=== PATIENT | male | born 1970 | race Caucasian/White ===

== ENCOUNTER 2021-10-06 07:09 | Day surgery (SDC) | payer BC ==
[2021-10-03 10:59] LABS: Absolute Lymphocytes (CBC) 2.1 K/uL (0.7-4.9); Hematocrit 49.1 % (39.6-49.0); Lymphocytes % 31.1 % (15.3-44.8); MPV 7.7 fL (7.6-11.3); RBC Red Blood Cell Count 5.87 M/uL (4.33-5.43)
[2021-10-06] MEDS ORDERED: Ringers Lactate 1,000 ML IV ONE (07:20)
[2021-10-06] MEDS ORDERED: CEFAZOLIN 2 GM IN 0.9% NACL 2 GM/100 ML BAG ONE (07:20)
[2021-10-06] MEDS ORDERED: propofoL 200 MG/20 ML VIAL IV ONE (07:33)
[2021-10-06] MEDS ORDERED: MIDAZOLAM HCL 2 MG/2 ML INJ ONE (07:34)
[2021-10-06] MEDS ORDERED: GLYCOPYRROLATE 0.2 MG/ML SYR ONE (07:34)
[2021-10-06] MEDS ORDERED: LIDOCAINE 2% MPF 5 ML VIAL ONE (07:34)
[2021-10-06] MEDS ORDERED: ROCURONIUM 50 MG/5 ML VIAL IV ONE (07:35)
[2021-10-06] MEDS ORDERED: NEOSTIGMINE 1 MG/ML -10 ML VIAL ONE (07:38)
[2021-10-06] MEDS ORDERED: ONDANSETRON 4 MG/2 ML VIAL ONE (07:38)
[2021-10-06] MEDS ORDERED: FENTANYL CITR 100 MCG/2 ML ONE (07:39)
[2021-10-06] MEDS: BUPIVACAINE 0.25% PF 10 ML VIAL ONE ×2 (08:37→08:46)
[2021-10-06] MEDS ORDERED: dexAMETHasone 10 MG/ML VIAL ONE (08:44)
[2021-10-06] MEDS ORDERED: EPHEDRINE SULF 50 MG/ML VIAL ONE (08:57)
--- NOTE | 2021-10-06 09:31 | P.OP ---
Preoperative diagnosis: Incarcerated Ventral Umbilical Hernia Postoperative diagnosis: Incarcerated Ventral Umbilical Hernia Primary procedure: Laparoscopic Ventral Hernia Repair with Mesh Anesthesia: GETA + Local Estimated blood loss: <5cc Specimen: hernia contents Findings: incarcerated umbilical hernia with skin changes Complications: None Implants: 11.4cm bard ventralite round mesh, sorbafix x 2 Transferred to: Recovery Room Condition: Good
[2021-10-06] MEDS: HYDROMORPHONE HCL 1 MG/ML INJ ONE ×7 (09:40→10:17)
[2021-10-06 10:57] VITALS: BP 103/50; TEMP 97.7; O2SAT 96
[2021-10-06] MEDS ORDERED: HYDROCODONE/APAP 5/325 MG TAB ONE (11:21)
--- NOTE | 2021-10-06 20:45 | OP ---
Date of Procedure: 10/06/2021 Surgeon: Unruly Bartlett MD, Preoperative Diagnosis: Incarcerated ventral umbilical hernia. Postoperative Diagnosis: Incarcerated ventral umbilical hernia. Procedure Performed: Laparoscopic ventral umbilical hernia repair with mesh. Anesthesia: General endotracheal plus local with 0.25% Marcaine. Estimated Blood Loss: Less than 5 cc. Specimens: Hernia contents. Findings: Incarcerated umbilical hernia with skin changes. Complications: None. Implants: Approximately 11.4 cm Bard Ventralight round mesh and the SorbaFix absorbable fixation tac ker. Disposition: Patient was transferred to recovery room in good condition. Procedure In Detail: After informed consent was obtained, patient was brought to the operating room and prepped and draped in the usual sterile fashion. After adequate anesthesia was achieved, an area of the left upper quadrant was anesthetized with 0.25% Marcaine and sharply incised. A 5 mm 0-degre e optical trocar was introduced in the abdomen without evidence of any complication. Insufflation wa s obtained to 15 mmHg at this time. There was no injury to vital structures upon entry into the abdo men. Additional trocar was chosen at left lower quadrant. This area was similarly anesthetized and sharply incised. A 12 mm trocar was placed under direct visualization without any evidence of compli cation. I then used a ratcheted graspers to grasp patient's incarcerated umbilical hernia and reduce d it to the normal peritoneal position. Omentum was entrapped within as well as preperitoneal fat. After using the LigaSure device to clear back the preperitoneal fat to allow for appropriate landing zone, additional hernia was appreciated. The infraumbilical position was approximately half a centim eter in size inferior to the umbilical hernia, which was found to be approximately 2 cm defect. At t his point, I used the Endo stitch with a V-Loc suture and ran a baseball stitch to close the hernia d efect while imbricating the hernia sac in a running fashion as described with good apposition of the tissues. I then sized an 11.[address] mesh with Echo Positioning System positioned at the central portion with a stab incision and deployed the balloon at this point after being complete ly positioned. At this point, I used the SorbaFix absorbable fixation Tacker to secure the mesh to t he anterior abdominal wall with a single crown, removed the mesh deployment system and then secured a second crown of approximately 45 to 50 tacks to the anterior abdominal wall with good apposition of tissues. At this point, the mesh was in good apposition. The hernia was completely repaired. No bl eeding or hemostatic maneuvers were required. The patient was positioned slightly away. The 12 mm t rocar site was closed using a [place]-Pur[place] suture passer with 0 Vicryl in an interrupted fashion w ith good approximation of tissues. The abdomen was completely desufflated under direct visualization without any complication. Remaining skin incisions were then copiously irrigated after the abdomen was completely desufflated. All skin incisions were then irrigated, closed with a 4-0 Monocryl in a running fashion. Dermabond was placed over top. The patient tolerated the procedure well without an y evidence of complication and transferred to PACU in good condition. All counts were correct at the end of the case. ELENA/COY Voice ID: [id number] Report ID: [id number]
== END 2021-10-06 11:44 | disposition home or self-care (01) ==
LOC: OR 07:09
PROVIDERS: ATTEND Surgery
PROC: 0WUF4JZ Supplement Abdominal Wall with Synthetic Substitute, Percutaneous Endoscopic Approach (ICD-10-PCS; principal; 2021-10-06 10:30)
DX: K42.0 Umbilical hernia with obstruction, without gangrene (principal); Z20.822 Contact with and (suspected) exposure to COVID-19
CPT/HCPCS: 85025; 80048; 36415; 88302; 49653; U0002; J2704; J2710; J2250; J3010; J1100; J1170 ×3; J0690; J7120; J2405; C1781

== ENCOUNTER 2021-11-13 10:38 | Emergency (ER) | payer BC ==
[2021-11-13 12:16] LABS: Absolute Lymphocytes (CBC) 1.7 K/uL (0.7-4.9); Hematocrit 48.5 % (39.6-49.0); Lymphocytes % 24.4 % (15.3-44.8); MCV 81.7 fL (80-100); MPV 7.8 fL (7.6-11.3); RBC Red Blood Cell Count 5.94 M/uL (4.33-5.43)
[2021-11-13 12:30] LABS: Albumin 3.7 g/dL (3.4-5.0); Bilirubin Total 0.5 mg/dL (0.2-1.0); Potassium 3.9 mmol/L (3.5-5.1); Protein, Total 7.3 g/dL (6.4-8.2)
--- NOTE | 2021-11-13 13:24 | RAD REPORT ---
EXAM DESCRIPTION: CT - Abdomen Pelvis W Contrast - 11/13/2021 12:55 pm CLINICAL HISTORY: abdominal pain, vomiting COMPARISON: No comparisons TECHNIQUE: Biphasic, helical CT imaging of the abdomen and pelvis was performed following 100 ml non -ionic IV contrast. No oral contrast administered. All CT scans are performed using dose optimization technique as appropriate and may include automated exposure control or mA/KV adjustment according to patient size. FINDINGS: No suspicious findings in the lung bases. The liver, spleen, and pancreas show no suspicious findings. Gallbladder and biliary tree are also wi thout suspicious finding. Symmetric renal function is seen with no hydronephrosis or suspicious renal mass. An exophytic 2.5 cm mass projects from the lateral aspect of the left kidney. No pyelonephritis or acute parenchymal pro cess. No bladder abnormalities. No adrenal abnormalities. Fluid is present in nondilated stomach. No gastric wall thickening or mass. Duodenum is unremarkable. There are multiple loops of jejunum and proximal ileum that are prominent and fluid-filled. This is an enteritis pattern without focal mass or obstruction. Fluid is present in the right-side of the col on to the mid transverse colon level. No colon wall thickening or mass. Left-side of the colon is dec ompressed. No free air, free fluid or inflammatory stranding. No mass or bulky lymphadenopathy. Patient has mo derate-sized bilateral fat filled inguinal hernias. There is a very small 15 mm umbilical hernia. No suspicious bony findings. Significant degenerative disc disease at L4-5 with disc bulge and endpl ate spurring. IMPRESSION: Moderately prominent small bowel enteritis pattern is seen with no obstruction, free air or emergent finding. Moderate-sized bilateral fat filled inguinal hernias are present. There is a small fat only umbilical hernia 15 mm in size.
[2021-11-13 14:24] LABS: Urine Blood Negative (Negative); Urine Glucose Negative (Negative); Urine Protein Negative (Negative)
[2021-11-13] MEDS ORDERED: Ringers Lactate 1,000 ML IV ONE (15:07)
--- NOTE | 2021-11-13 15:59 | ER ---
Nurse's Notes [facility] Name: Pa Hernandez Age: 50 yrs Sex: Male : 1970 Arrival Date: 11/13/2021 Time: 10:41 Bed 20 Private MD: Julio C Pop Diagnosis: Abdominal pain, unspecified;Vomiting;Diarrhea, unspecified Presentation: 11/13 10:55 Chief complaint: Patient states: He has had NVD along with possible fever for approx ap3 one day now. Patient also states having left sided abdominal pain that began yesterday as well. Patient reports having a hernia repair surgery on 10/06/21 and didn't know if his symptoms were related to that surgery or not. Coronavirus screen: Client presents with at least one sign or symptom that may indicate coronavirus-19. Ebola Screen: No symptoms or risks identified at this time. Initial Sepsis Screen: Does the patient meet any 2 criteria? No. Patient's initial sepsis screen is negative. Does the patient have a suspected source of infection? No. Patient's initial sepsis screen is negative. Risk Assessment: Do you want to hurt yourself or someone else? Patient reports no desire to harm self or others. Onset of symptoms was November 12, 2021. 10:55 Method Of Arrival: Ambulatory ap3 10:59 Acuity: ESTELA 3 ap3 Triage Assessment: 10:58 General: Appears in no apparent distress. Behavior is calm, cooperative, appropriate ap3 for age. Pain: Complains of pain in abdomen. Neuro: Level of Consciousness is awake, alert, obeys commands, Oriented to person, place, time, situation, Moves all extremities. Gait is steady. Cardiovascular: Patient's skin is warm and dry. Respiratory: Airway is patent Respiratory effort is even, unlabored. GI: Reports cramping, diarrhea, intolerance of fluids, intolerance of food, nausea, vomiting. Historical: - Allergies: 10:57 No Known Allergies; ap3 - Home Meds: 10:57 Flomax Oral [Active]; Nexium Oral [Active]; ap3 - PMHx: 10:57 enlarged prostate; ap3 - Immunization history:: Client reports receiving the 2nd dose of the Covid vaccine. - Social history:: Smoking status: Patient denies any tobacco usage or history of. Screenin:59 Abuse screen: Denies threats or abuse. Nutritional screening: No deficits noted. ap3 Tuberculosis screening: No symptoms or risk factors identified. 15:08 Fall Risk None identified. ph Assessment: 15:07 General: Appears in no apparent distress. comfortable, well groomed, Behavior is calm, ph cooperative, appropriate for age. Pain: Complains of pain in abdomen. Neuro: Level of Consciousness is awake, alert, obeys commands, Oriented to person, place, time, situation. Cardiovascular: Capillary refill < 3 seconds in bilateral fingers Patient's skin is warm and dry. Respiratory: Airway is patent Respiratory effort is even, unlabored. GI: Abdomen is non-distended, Bowel sounds present X 4 quads. Abd is soft and non tender X 4 quads. Reports lower abdominal pain, diarrhea, nausea, vomiting. Derm: Skin is intact, is healthy with good turgor, Skin is pink, warm \T\ dry. Vital Signs: 10:55 BP 126 / 89; Pulse 92; Resp 17; Temp 98.1; Pulse Ox 96% ; Weight 93.44 kg; Height 6 ft. ap3 0 in. (182.88 cm); 15:07 BP 126 / 78; Pulse 86; Resp 18; Temp 98.0; Pulse Ox 99% on R/A; ph 10:55 Body Mass Index 27.94 (93.44 kg, 182.88 cm) ap3 ED Course: 10:41 Patient arrived in ED. mr 10:41 Julio C Pop MD is Private Physician. mr 10:46 Jono Bills PA is [facility]. m 10:46 Carmelo French MD is Attending Physician. [facility] 10:59 Triage completed. ap3 10:59 Arm band placed on right wrist. ap3 12:13 Inserted saline lock: 20 gauge in right antecubital area, using aseptic technique. zm Blood collected. 12:14 CBC with Diff Sent. zm 12:14 CMP Sent. zm 12:14 Lipase Sent. zm 12:56 CT Abd/Pelvis - IV Contrast Only In Process Unspecified. EDMS 14:41 Amy Pham, RN is Primary Nurse. ph 15:08 Patient has correct armband on for positive identification. Bed in low position. Call ph light in reach. Side rails up X 1. Pulse ox on. NIBP on. 15:08 No provider procedures requiring assistance completed. ph 15:58 Unruly Bartlett MD is Referral Physician. [facility] 16:36 IV discontinued, intact, bleeding controlled, No redness/swelling at site. Pressure ph dressing applied. Administered Medications: 15:07 Drug: Lactated Ringers Solution 1000 ml Route: IV; Rate: 1000 bolus; Site: right ph antecubital; 16:35 Follow up: Response: No adverse reaction; IV Status: Completed infusion; IV Intake: ph 1000ml Medication: 15:08 VIS not applicable for this client. ph Intake: 16:35 IV: 1000ml; Total: 1000ml. ph Outcome: 15:59 Discharge ordered by . [facility] 16:35 Discharged to home ambulatory, with significant other. ph 16:35 Condition: good 16:35 Discharge instructions given to patient, Instructed on discharge instructions, follow up and referral plans. Demonstrated understanding of instructions, follow-up care. 16:36 Patient left the ED. ph Signatures: Dispatcher [employer] EDMS Jono Bills PA PA [facility] Samantha Dc Amy Pham RN RN Poonam Walls RN RN ap3 Jimena العراقي Corrections: (The following items were deleted from the chart) 10:58 10:57 Allergies: Aspirin; ap3 ap3
--- NOTE | 2021-11-13 15:59 | EDPHYS ---
Physician Documentation [facility] Name: Pa Hernandez Age: 50 yrs Sex: Male : 1970 Arrival Date: 11/13/2021 Time: 10:41 Bed 20 Private MD: Julio C Pop ED Physician Carmelo French HPI: 11/13 11:21 This 50 yrs old Male presents to ER via Ambulatory with complaints of Abdominal Pain, jmm Vomiting/Diarrhea. 11:21 The patient presents with abdominal pain. Onset: The symptoms/episode began/occurred jmm acutely, 1 day(s) ago. The symptoms do not radiate. Associated signs and symptoms: Pertinent positives: nausea and vomiting, diarrhea. The symptoms are described as achy, crampy. Modifying factors: The symptoms are alleviated by nothing, the symptoms are aggravated by nothing. It is unknown whether or not the patient has had similar symptoms in the past. Historical: - Allergies: 10:57 No Known Allergies; ap3 - Home Meds: 10:57 Flomax Oral [Active]; Nexium Oral [Active]; ap3 - PMHx: 10:57 enlarged prostate; ap3 - Immunization history:: Client reports receiving the 2nd dose of the Covid vaccine. - Social history:: Smoking status: Patient denies any tobacco usage or history of. ROS: 11:21 Cardiovascular: Negative for chest pain, palpitations, and edema, Respiratory: Negative jmm for shortness of breath, cough, wheezing, and pleuritic chest pain. 11:21 Constitutional: Positive for body aches. 11:21 Abdomen/GI: Positive for abdominal pain, nausea and vomiting, diarrhea. 11:21 All other systems are negative. Exam: 11:21 Head/Face: atraumatic. Eyes: EOMI, no conjunctival erythema appreciated ENT: Moist jmm Mucus Membranes Neck: Trachea midline, Supple Chest/axilla: Normal chest wall appearance and motion. Cardiovascular: Regular rate and rhythm. No edema appreciated Respiratory: Normal respirations, no respiratory distress appreciated 11:21 Back: Normal ROM Skin: General appearance color normal MS/ Extremity: Moves all extremities, no obvious deformities appreciated, no edema noted to the lower extremities Neuro: Awake and alert Psych: Behavior is normal, Mood is normal, Patient is cooperative and pleasant 11:21 Constitutional: The patient appears in no acute distress, alert, awake. 11:21 Abdomen/GI: Inspection: abdomen appears normal, Bowel sounds: normal, Palpation: soft, mild abdominal tenderness, in all quadrants. Vital Signs: 10:55 BP 126 / 89; Pulse 92; Resp 17; Temp 98.1; Pulse Ox 96% ; Weight 93.44 kg; Height 6 ft. ap3 0 in. (182.88 cm); 15:07 BP 126 / 78; Pulse 86; Resp 18; Temp 98.0; Pulse Ox 99% on R/A; ph 10:55 Body Mass Index 27.94 (93.44 kg, 182.88 cm) ap3 MDM: 11:21 Patient medically screened. [facility] 15:57 Data reviewed: vital signs, nurses notes. Counseling: I had a detailed discussion with [facility] the patient and/or guardian regarding: the historical points, exam findings, and any diagnostic results supporting the discharge/admit diagnosis, lab results, radiology results, the need for outpatient follow up, to return to the emergency department if symptoms worsen or persist or if there are any questions or concerns that arise at home. 11/13 11:21 Order name: CBC with Diff; Complete Time: 12:20 [facility] 11/13 11:21 Order name: CMP; Complete Time: 12:32 [facility] 11/13 11:21 Order name: Lipase; Complete Time: 12:32 [facility] 11/13 11:22 Order name: CT Abd/Pelvis - IV Contrast Only; Complete Time: 13:31 [facility] 11/13 14:25 Order name: Urine Dipstick-Ancillary; Complete Time: 14:26 [facility] 11/13 11:21 Order name: IV Saline Lock; Complete Time: 12:14 [facility] 11/13 11:21 Order name: Labs collected and sent; Complete Time: 12:14 [facility] 11/13 11:21 Order name: Urine Dipstick-Ancillary (obtain specimen); Complete Time: 14:26 [facility] Administered Medications: 15:07 Drug: Lactated Ringers Solution 1000 ml Route: IV; Rate: 1000 bolus; Site: right ph antecubital; 16:35 Follow up: Response: No adverse reaction; IV Status: Completed infusion; IV Intake: ph 1000ml Disposition: 18:22 Co-signature as Attending Physician, Carmelo French MD. rn Disposition Summary: 11/13/21 15:59 Discharge Ordered Location: Home jmm Condition: Stable jmm Diagnosis - Abdominal pain, unspecified jmm - Vomiting jmm - Diarrhea, unspecified jmm Followup: jmm - With: Unruly Bartlett MD - When: 2 - 3 days - Reason: Recheck today's complaints, Continuance of care, Re-evaluation by your physician Forms: - Medication Reconciliation Form jmm - Thank You Letter jmm - Antibiotic Education jmm - Prescription Opioid Use jmm Signatures: Dispatcher [employer] EDMS Jono Bills PA PA jmm Carmelo French MD MD rn Hall, Patricia, RN RN Poonam Walls RN RN ap3 Corrections: (The following items were deleted from the chart) 10:58 10:57 Allergies: Aspirin; ap3 ap3
[2021-11-13 16:50] VITALS: BP 126/78; TEMP 98; O2SAT 99
== END 2021-11-13 16:36 | disposition home or self-care (01) ==
LOC: ER 10:38
DX: R10.9 Unspecified abdominal pain (principal); R11.2 Nausea with vomiting, unspecified; R19.7 Diarrhea, unspecified
CPT/HCPCS: 85025; 36415; 81003; 83690; 80053; 74177; 96360; 99284; Q9967; J7120

== ENCOUNTER 2021-12-07 07:01 | Day surgery (SDC) | payer BC ==
[2021-12-05 12:29] LABS: SARS-CoV-2 Antigen Rapid Res Negative (Negative)
[2021-12-07] MEDS ORDERED: Ringers Lactate 1,000 ML IV ONE (07:23)
[2021-12-07] MEDS ORDERED: CEFAZOLIN 2 GM IN 0.9% NACL 2 GM/100 ML BAG ONE (07:24)
[2021-12-07] MEDS ORDERED: BUPIVACAINE 0.25% PF 10 ML VIAL ONE (08:17)
[2021-12-07] MEDS ORDERED: propofoL 200 MG/20 ML VIAL IV ONE (08:22)
[2021-12-07] MEDS ORDERED: MIDAZOLAM HCL 2 MG/2 ML INJ ONE (08:23)
[2021-12-07] MEDS ORDERED: ONDANSETRON 4 MG/2 ML VIAL ONE ×2 (08:23→09:18)
[2021-12-07] MEDS ORDERED: FENTANYL CITR 100 MCG/2 ML ONE (08:23)
[2021-12-07] MEDS ORDERED: LIDOCAINE 2% MPF 5 ML VIAL ONE (08:23)
[2021-12-07] MEDS ORDERED: ROCURONIUM 50 MG/5 ML VIAL IV ONE ×2 (08:23→10:06)
[2021-12-07] MEDS ORDERED: dexAMETHasone 4 MG/ML VIAL ONE (09:18)
[2021-12-07] MEDS ORDERED: EPHEDRINE SULF 50 MG/ML VIAL ONE (09:33)
--- NOTE | 2021-12-07 10:25 | P.OP ---
Icing Coater: Sydnee Salas Preoperative diagnosis: Bilateral Inguinal Hernias Postoperative diagnosis: Bilateral Inguinal Hernias Primary procedure: Open Bilateral Inguinal Hernia Repair with mesh Anesthesia: GETA + Local Estimated blood loss: <5cc Specimen: cord lipoma from RIGHT Findings: incarcerated bilat, ing hernias, ext oblique thin, adhesions Complications: None Transferred to: Recovery Room Condition: Good
[2021-12-07] MEDS ORDERED: NEOSTIGMINE 1 MG/ML -10 ML VIAL ONE (10:37)
[2021-12-07] MEDS ORDERED: GLYCOPYRROLATE 0.2 MG/ML SYR ONE (10:37)
[2021-12-07] MEDS: HYDROMORPHONE HCL 1 MG/ML INJ ONE ×6 (10:49→11:16)
[2021-12-07] MEDS: MIDAZOLAM HCL 2 MG/2 ML INJ ONE ×2 (11:01→11:06)
[2021-12-07 11:18] VITALS: TEMP 97.3
[2021-12-07] MEDS ORDERED: TAMSULOSIN 0.4 MG SR CAP ONE ×2 (11:36→11:39)
[2021-12-07] MEDS ORDERED: HYDROCODONE/APAP 10/325 TAB ONE (12:08)
[2021-12-07 13:30] VITALS: BP 92/76; O2SAT 96
--- NOTE | 2021-12-07 22:45 | OP ---
Date of Procedure: 12/07/2021 Surgeon: Unruly Bartlett MD, Preoperative Diagnosis: Bilateral inguinal hernias. Postoperative Diagnosis: Bilateral inguinal hernias. Procedure Performed: Open bilateral inguinal hernia repair with mesh. Anesthesia: General endotracheal plus local with 0.25% Marcaine with epinephrine. Estimated Blood Loss: Less than 5 mL. Specimens: Cord lipoma from the right. Findings: 1.Incarcerated bilateral indirect inguinal hernias. 2.Bilateral cord lipomas. 3.External oblique aponeurosis was thin. 4.Significant scar tissue evident in bilateral [place] fat and Yaima fascia planes, extending up to the external oblique aponeurosis. Complications: None. The patient was transferred to recovery room in good condition. Procedure In Detail: After informed consent was obtained, the patient was brought to the operating r oom, prepped and draped in the usual sterile fashion. After adequate anesthesia was achieved, I init iated palpation of the pubic tubercle and the anatomic landmarks in the left inguinal area. I then m arked the area on bilateral sides at this point, but I initiated with the left inguinal incision firs t after appropriately anesthetizing the skin. I used the 15 blade to dissect down through subcutaneo us tissues. I then dissected down through [place] fat and Yaima fascia, which were found to be quite scarred interestingly, as the patient had no previous surgery in this area. There was a significant amount of adhesions extending up to the external oblique aponeurosis. The external oblique aponeuro sis was identified, sharply incised with a 15 blade and then opened in its entirety using [place] scisso rs. It was found to be quite thin with the spermatic cord structures evident through the structure. The ilioinguinal and iliohypogastric nerves were protected throughout the procedure. I then circumf erentially dissected the spermatic cord and structures, and placed a Gera drain under the spermati c cord and structures, and used this to help dissect a cord lipoma off the spermatic cord and structu res, which was able to be dissected and re-placed back to the preperitoneal space. I dissected the h ernia sac circumferentially around and imbricated it into the preperitoneal space. At this point, we found a medium hernia plug to be at appropriate size and placed it into the preperitoneal space to r epair the indirect inguinal hernia. At this point, I then secured the plug using 2-0 PDS sutures cir cumferentially around the defect. I then irrigated the area copiously and sized a hernia patch appro priately. I then placed the patch on the pubic tubercle and secured it to the pubic tubercle using t he same said 2-0 PDS suture. After trimming the mesh appropriately, reconstituting and forming the d eep inguinal ring, I then secured it to the medial and lateral shelving edges of the internal oblique aponeurosis as well as the undersurface of the inguinal ligament. At this point, the area was copio usly irrigated once again. The deep inguinal ring was reconstituted and reformed, and I trimmed a sl ightly bit more of the mesh at this point to make an appropriate closure. I then closed the external oblique aponeurosis over the top after irrigating the area using a 3-0 Vicryl suture in a running fa shion. I then closed [place] fat and Yaima fascia using 3-0 Vicryl suture in a running fashion. Zuri p dermal plane was closed also with 3-0 Vicryl suture and the skin was closed with a 4-0 Monocryl in a running fashion. Dermabond was placed over the top. I then initiated with the right inguinal inci basilio after appropriately anesthetizing the skin. I used the 15 blade to dissect down through subcuta neous tissues. I then dissected down through [place] fat and Yaima fascia, which were found to be qu ite scarred interestingly, as the patient had no previous surgery in this area. There was a signific ant amount of adhesions extending up to the external oblique aponeurosis. The external oblique apone urosis was identified, sharply incised with a 15 blade and then opened in its entirety using [place] sci ssors. It was found to be quite thin with the spermatic cord structures evident through the structur e. The ilioinguinal and iliohypogastric nerves were protected throughout the procedure. I then circ umferentially dissected the spermatic cord and structures, and placed a [place] drain under the sperm atic cord and structures, and used this to help dissect a cord lipoma off the spermatic cord and stru ctures, which was able to be dissected and re-placed back to the preperitoneal space. I dissected th e hernia sac circumferentially around and imbricated it into the preperitoneal space. At this point, we found a small hernia plug to be at appropriate size and placed it into the preperitoneal space to repair the indirect inguinal hernia. At this point, I then secured the plug using 2-0 PDS sutures c ircumferentially around the defect. I then irrigated the area copiously and sized a hernia patch sam ropriately. I then placed the patch on the pubic tubercle and secured it to the pubic tubercle using the same said 2-0 PDS suture. After trimming the mesh appropriately, reconstituting and forming the deep inguinal ring, I then secured it to the medial and lateral shelving edges of the internal obliq ue aponeurosis as well as the undersurface of the inguinal ligament. At this point, the area was blueprinting and photocopy supervisor iously irrigated once again. The deep inguinal ring was reconstituted and reformed, and I trimmed a slightly bit more of the mesh at this point to make an appropriate closure. I then closed the registered nurses al oblique aponeurosis over the top after irrigating the area using a 3-0 Vicryl suture in a running fashion. I then closed [place] fat and Yaima fascia using 3-0 Vicryl suture in a running fashion. D eep dermal plane was closed also with 3-0 Vicryl suture and the skin was closed with a 4-0 Monocryl i n a running fashion. Dermabond was placed over the top. The patient tolerated procedure well withou t evidence of complication, transferred to PACU in good condition. All counts were correct at the en d of the case. ELENA/COY Voice ID: [id number] Report ID: [id number]
== END 2021-12-07 13:15 | disposition home or self-care (01) ==
LOC: OR 07:01
PROVIDERS: ATTEND Surgery
PROC: 0YUA0JZ Supplement Bilateral Inguinal Region with Synthetic Substitute, Open Approach (ICD-10-PCS; principal; 2021-12-07 08:30)
DX: K40.20 Bilateral inguinal hernia, without obstruction or gangrene, not specified as recurrent (principal); Z20.822 Contact with and (suspected) exposure to COVID-19
CPT/HCPCS: 36415; 87811; 88302; J0690; J1100; J1170; J2250; J2405; J2704; J2710; J3010; J7120

== ENCOUNTER 2024-03-27 10:08 | Day surgery (SDC) | payer BC ==
[2024-03-26 15:59] LABS: Absolute Eosinophils 0.1 K/uL (0-0.5); Absolute Lymphocytes (CBC) 1.7 K/uL (0.7-4.9); Absolute Monocytes 0.5 K/uL (0.1-1.3); Absolute Neutrophil 4.1 K/uL (1.8-8.0); Basophils % 0.4 % (0-1.3); Eosinophils % 2.2 % (0-4.4); Hemoglobin 16.1 g/dL (13.6-17.9); Lymphocytes % 25.9 % (15.3-44.8); MCH 28.3 pg (27.0-35.0); MCHC 32.9 g/dL (32.0-36.0); MPV 7.8 fL (7.6-11.3); Monocytes % 8.5 % (3.3-12.3); Platelets 220 thou/uL (152-406); Red Cell Distribution Width 14.1 % (12.1-15.2)
[2024-03-26 16:14] LABS: Anion Gap 4.6 mEq/L (5.0-15.0); Potassium 3.6 mEq/L (3.5-5.1)
[2024-03-27] MEDS: Ringers Lactate 1,000 ML IV ONE (10:45)
[2024-03-27] MEDS ORDERED: MIDAZOLAM HCL 2 MG/2 ML INJ ONE (11:14)
[2024-03-27] MEDS ORDERED: KETOROLAC 30 MG/ML INJ ONE (11:14)
[2024-03-27] MEDS ORDERED: ONDANSETRON 4 MG/2 ML VIAL ONE (11:14)
[2024-03-27] MEDS ORDERED: dexAMETHasone 10 MG/ML VIAL ONE (11:14)
[2024-03-27] MEDS ORDERED: FENTANYL CITR 100 MCG/2 ML ONE (11:14)
[2024-03-27] MEDS ORDERED: LIDOCAINE 2% MPF 5 ML VIAL ONE (11:14)
[2024-03-27] MEDS ORDERED: propofoL 200 MG/20 ML VIAL IV ONE (11:14)
[2024-03-27] MEDS: CEFAZOLIN SODIUM 2 GM/VIAL ONE (11:28)
[2024-03-27] MEDS ORDERED: EPHEDRINE SULF 50 MG/ML VIAL ONE (11:43)
[2024-03-27] MEDS ORDERED: NS 0.9% VIAL 10 ML ONE (11:43)
[2024-03-27] MEDS ORDERED: Phenylephrine HCl 10 MG/ML 1 ML VIAL ONE (11:43)
[2024-03-27] MEDS: LIDOCAINE HCL/EPINEPHRINE 20 ML MDV ONE (11:49)
--- NOTE | 2024-03-27 12:22 | P.OP ---
Preoperative diagnosis: Multiple Back Cysts (2 upper left, one lower right) Postoperative diagnosis: Multiple Back Cysts (2 upper left, one lower right) Primary procedure: Wide Exicison of Multiple Back Cysts (2 upper left, one lower right) Anesthesia: GETA + Local Estimated blood loss: <5cc Specimen: Multiple Back Cysts (2 upper left, one lower right) Findings: Multiple Back Cysts (2 upper left, one lower right) Complications: None Transferred to: Recovery Room Condition: Good
[2024-03-27 14:18] VITALS: BP 134/60; TEMP 97.7; O2SAT 97
--- NOTE | 2024-03-28 00:01 | OP ---
Date of Procedure: 03/27/2024 Surgeon: Unruly Bartlett MD, Preoperative Diagnosis: Multiple back cysts, 2 on the left upper back, 1 on the right lower back. Postoperative Diagnosis: Multiple back cysts, 2 on the left upper back, 1 on the right lower back. Procedure Performed: Wide local excision of above, 2 upper left back, 1 right lower back cysts consi stent with epidermal cyst. Anesthesia: General endotracheal plus local 1% lidocaine. Estimated Blood Loss: Less 5 mL. Specimens: Multiple back cysts as described above. Findings: Same. Complications: None. Disposition: The patient was transferred to the recovery room in good condition. Procedure In Detail: After informed was obtained, the patient was brought to the operating room, pre pped and draped in the usual sterile fashion. After adequate anesthesia was achieved, I made an renee ptical incision circumferentially around these multiple back cysts. Left upper superior back cyst wa s approximately 3.5 cm circumferentially around in size. Ellipse of skin was taken out down to subcu taneous tissues, the cyst was sent off for pathologic examination. With the ellipse of skin, the are a was copiously irrigated. Hemostasis was achieved with minimal electrocautery. The wound was then reapproximated using 3-0 nylon suture in an interrupted fashion. A sterile dressing was placed over top. There was a left upper back inferior from the previous upper back cyst, which is also similarly anesthetized, sharply incised in an elliptical fashion 2 cm in size. Cyst was removed, sent off for pathologic examination. The area was copiously irrigated. Hemostasis was achieved with minimal addison ctrocautery. The wound was then reapproximated after being appropriately irrigated and dried with in terrupted 3-0 nylon sutures in a similar fashion. There was 1 additional right lower back cyst, whic h was similarly anesthetized sharply incised in elliptical fashion, it was approximately 4.5 cm in si ze down to the subcutaneous tissues. Electrocautery was used to remove the cyst in its entirely, sen t for pathologic examination. The area was copiously irrigated. Hemostasis was achieved with minima l electrocautery, irrigated once again and dried. The skin was then closed using 3-0 nylon suture in an interrupted fashion with good approximation of tissues. The patient tolerated the procedure with out incident or complication and transferred to PACU in good condition. All counts were correct at t he end of the case. ELENA/COY Voice ID: [id number] Report ID: [id number]
--- NOTE | 2024-03-30 12:07 | EKG ---
Test Date: 2024-03-26 Test Time: 16:37:55 Relocation Manager: ALLY MEASUREMENT RESULTS: Intervals: Rate: 65 CT: 190 QRSD: 96 QT: 380 QTc: 395 Veyo: P: 34 CT: 190 QRS: 19 T: 16 INTERPRETIVE STATEMENTS: Normal sinus rhythm Normal ECG No previous ECG available for comparison Electronically Signed On 03-30-24 12:03:06 [employer]PER[employer] by Joce Mai
== END 2024-03-27 14:00 | disposition home or self-care (01) ==
LOC: OR 10:08
PROVIDERS: ATTEND Surgery
PROC: 0JB70ZZ Excision of Back Subcutaneous Tissue and Fascia, Open Approach (ICD-10-PCS; principal; 2024-03-27 13:15)
DX: L72.0 Epidermal cyst (principal); F41.9 Anxiety disorder, unspecified
CPT/HCPCS: 85025; 80048; 36415; 88304; 11404; 11402; 11406; A4216; J2704; J2371; J2003; J2250; J3010; J1100; J2405; J7120; 93005